=== PATIENT | male | born 1990 | race Caucasian/White ===

== ENCOUNTER → 2020-12-23 | Outpatient (CLI) | payer OTHER ==
[2020-12-23 19:10] LABS: HEPATITIS B SURFACE ANTIBODY NEGATIVE (POSITIVE); HEPATITIS B SURFACE ANTIGEN NEGATIVE (NEGATIVE)
== END ==
LOC: M PLALAB 12:56
PROVIDERS: ATTEND Internal Medicine Infectious Disease
DX: B18.2 Chronic viral hepatitis C (principal)

== ENCOUNTER → 2021-10-23 | Outpatient (CLI) | payer OTHER | LOC: M OUTALCOH 08:08 | PROVIDERS: ATTEND Psychiatry & Neurology Psychiatry | DX: Z13.39 Encounter for screening examination for other mental health and behavioral disorders (principal) ==

== ENCOUNTER 2021-12-01 09:00 | Outpatient (RCR) | payer OTHER | END 2021-12-03 | LOC: M OUTALCOH 09:00 | PROVIDERS: ATTEND Psychiatry & Neurology Psychiatry | DX: F12.20 Cannabis dependence, uncomplicated (principal); F17.200 Nicotine dependence, unspecified, uncomplicated | CPT/HCPCS: 90832; H0050 ==

== ENCOUNTER → 2021-12-18 | Outpatient (CLI) | payer OTHER | LOC: M RAD 16:12 | PROVIDERS: ATTEND Family Medicine Addiction Medicine | DX: R11.2 Nausea with vomiting, unspecified (principal); G93.9 Disorder of brain, unspecified ==

== ENCOUNTER → 2021-12-23 | Outpatient (CLI) | payer OTHER ==
[~2021-12-23] MED LIST: PROHANCE 279.3MG/ML 15ML VIAL As Ordered ONE
== END ==
LOC: M RAD 16:33
PROVIDERS: ATTEND Family Medicine Addiction Medicine
DX: G23.8 Other specified degenerative diseases of basal ganglia (principal)
CPT/HCPCS: 70553; A9576

== ENCOUNTER 2021-12-29 09:00 | Outpatient (RCR) | payer OTHER | END 2022-01-03 | LOC: M OUTALCOH 09:00 | PROVIDERS: ATTEND Psychiatry & Neurology Psychiatry | DX: F12.20 Cannabis dependence, uncomplicated (principal); F17.200 Nicotine dependence, unspecified, uncomplicated ==

== ENCOUNTER 2022-02-02 09:00 | Outpatient (RCR) | payer MEDICAID | END 2022-02-03 | LOC: M OUTALCOH 09:00 | PROVIDERS: ATTEND Psychiatry & Neurology Psychiatry | DX: F12.20 Cannabis dependence, uncomplicated (principal); F17.200 Nicotine dependence, unspecified, uncomplicated ==

== ENCOUNTER 2022-02-23 09:00 | Outpatient (RCR) | payer MEDICAID | END 2022-03-05 | LOC: M OUTALCOH 09:00 | PROVIDERS: ATTEND Psychiatry & Neurology Psychiatry | DX: F12.20 Cannabis dependence, uncomplicated (principal); F17.200 Nicotine dependence, unspecified, uncomplicated ==

== ENCOUNTER 2022-04-15 16:00 | Outpatient (RCR) | payer MEDICAID | END 2022-05-05 | LOC: M OUTALCOH 16:00 | PROVIDERS: ATTEND Psychiatry & Neurology Psychiatry | DX: F12.20 Cannabis dependence, uncomplicated (principal); F17.200 Nicotine dependence, unspecified, uncomplicated ==

== ENCOUNTER 2022-05-13 09:00 | Outpatient (RCR) | payer MEDICAID | END 2022-06-05 | LOC: M OUTALCOH 09:00 | PROVIDERS: ATTEND Psychiatry & Neurology Psychiatry | DX: F12.20 Cannabis dependence, uncomplicated (principal); F17.200 Nicotine dependence, unspecified, uncomplicated ==

== ENCOUNTER → 2022-11-08 | Outpatient (CLI) | payer OTHER ==
[2022-11-08 14:33] LABS: BASO # 0.1 10^3/uL (0.0-0.2); BASO % 0.6 % (0.0-1.0); EOS # 0.1 10^3/uL (0.0-0.5); HEMATOCRIT 42.8 % (42.0-52.0); HEMOGLOBIN 13.9 g/dl (13.5-17.5); LYMPH # 1.4 10^3/uL (1.5-5.0); LYMPH % 14.3 % (24.0-44.0); MEAN CORPUSCULAR HGB CONC 32.5 g/dl (32.0-36.5); MEAN CORPUSCULAR VOLUME 92.4 fl (80.0-96.0); MONO # 0.4 10^3/uL (0.0-0.8); MONO % 3.9 % (2.0-8.0); NEUTROPHILS % 79.9 % (36.0-66.0); PLATELET COUNT, AUTOMATED 295 10^3/uL (150-450); RED BLOOD COUNT 4.63 10^6/uL (4.30-6.10)
[2022-11-08 15:25] LABS: ALBUMIN 4.4 G/DL (3.2-5.2); ALKALINE PHOSPHATASE 55 U/L (46-116); ALT/SGPT 11 U/L (7.0-40); AST/SGOT < 8 U/L (<34); BILIRUBIN,TOTAL 0.3 MG/DL (0.3-1.2); BLOOD UREA NITROGEN 11 MG/DL (9-23); CALCIUM LEVEL 9.3 MG/DL (8.5-10.1); CARBON DIOXIDE LEVEL 29 MMOL/L (20-31); CHLORIDE LEVEL 106 MMOL/L (98-107); CHOLESTEROL LEVEL 193 MG/DL (<200); CHOLESTEROL RISK RATIO 3.11 (<5); CREATININE FOR GFR 0.85 MG/DL (0.70-1.30); GLOMERULAR FILTRATION RATE > 60.0 (>60); GLUCOSE, FASTING 71 MG/DL (60-100); HDL CHOLESTEROL 61.9 MG/DL (>40); LDL CHOLESTEROL 119.1 MG/DL (<100); NON-HDL-C 131.1 MG/DL; POTASSIUM SERUM 5.3 MMOL/L (3.5-5.1); SODIUM LEVEL 142 MMOL/L (136-145); THYROID STIMULATING HORMONE 2.085 uIU/ML (0.55-4.78); TOTAL PROTEIN 6.9 G/DL (5.7-8.2); TRIGLYCERIDES LEVEL 60 MG/DL (<150)
[2022-11-08 15:26] LABS: HEPATITIS B SURFACE ANTIBODY NEGATIVE (POSITIVE)
[2022-11-08 15:27] LABS: FREE T4 0.97 NG/DL (0.89-1.76)
[2022-11-08 15:32] LABS: HEMOGLOBIN A1c 5.2 % (4.0-6.0)
[2022-11-08 15:37] LABS: HEPATITIS B SURFACE ANTIGEN NEGATIVE (NEGATIVE)
[2022-11-08 15:59] LABS: HEPATITIS B CORE ANTIBODY IGM NEGATIVE (NEGATIVE)
[2022-11-08 16:17] LABS: HEPATITIS C VIRUS ABY INDEX > 11.0 INDEX (<0.8)
== END ==
LOC: M PLALAB 10:17
PROVIDERS: ATTEND Nurse Practitioner Family
DX: Z86.19 Personal history of other infectious and parasitic diseases (principal); Z13.1 Encounter for screening for diabetes mellitus; F20.9 Schizophrenia, unspecified

== ENCOUNTER → 2022-11-15 | Outpatient (REF) | payer MEDICAID, OTHER ==
[2022-11-15 14:13] LABS: APPEARANCE, URINE MANUAL CLEAR (CLEAR); BILIRUBIN, URINE MANUAL NEGATIVE (NEGATIVE); BLOOD URINE MANUAL POSITIVE (NEGATIVE); COLOR, URINE MANUAL YELLOW (YELLOW); GLUCOSE, URINE (UA) MANUAL NEGATIVE (NEGATIVE); KETONE, URINE MANUAL NEGATIVE (NEGATIVE); LEUKOCYTE ESTERASE, URINE MAN NEGATIVE (NEGATIVE); NITRITE, URINE MANUAL NEGATIVE (NEGATIVE); PROTEIN, URINE MANUAL NEGATIVE (NEGATIVE); SPECIFIC GRAVITY,URINE MANUAL 1.025 (1.002-1.035); UROBILINOGEN, URINE MANUAL NORMAL (NORMAL)
[2022-11-15 14:39] LABS: BACTERIA, URINE SMALL AMOUNT; HYALINE CAST, URINE NONE SEEN /lpf (0-1); SPERM, URINE SMALL AMOUNT; SQUAMOUS EPITHELIAL CELL URINE SMALL AMOUNT /hpf (SMALL AMT)
== END ==
LOC: M SFHCPLAZ 13:08
PROVIDERS: ATTEND Nurse Practitioner Family
DX: R31.9 Hematuria, unspecified (principal)

== ENCOUNTER 2023-03-21 14:25 | Day surgery (SDC) | payer OTHER ==
[~2023-03-21] VITALS: Ht 182.9 cm; Wt 78.9 kg
[~2023-03-21 14:25] MED LIST changes: +ADDE20CA3 PO; +AMPICILLIN SOD/SULBACTAM SOD 3 GM in D5W MINI-BAG PLUS 100 ML IV ONE; +BUPR8SUB SL; +INVE234I IM; +PRAZ2CAP PO; -PROHANCE 279.3MG/ML 15ML VIAL As Ordered ONE; +TRAZ-186 PO
[2023-03-21] MEDS ORDERED: MIDAZOLAM INJ 2MG/2ML VIAL As Ordered ONE (14:34)
[2023-03-21] MEDS ORDERED: fentaNYL 100 MCG/2 ML INJECTION As Ordered ONE (14:35)
[2023-03-21] MEDS ORDERED: ACETAMINOPHEN 1000MG 100ML IV BAG As Ordered ONE (14:35)
[2023-03-21] MEDS ORDERED: ROCURONIUM BROMIDE 50MG/5ML VIAL As Ordered ONE (14:36)
[2023-03-21] MEDS ORDERED: propofoL 200 MG/20 ML VIAL As Ordered ONE (14:36)
[2023-03-21] MEDS ORDERED: LIDOCAINE 2% 100MG/5ML SDV (FOR ANES.) As Ordered ONE (14:36)
[2023-03-21] MEDS ORDERED: ONDANSETRON 4MG 2ML VIAL As Ordered ONE (14:36)
[2023-03-21] MEDS ORDERED: SUGAMMADEX SODIUM 500 MG/5 ML VIAL (BRIDION) As Ordered ONE (14:36)
[2023-03-21] MEDS ORDERED: LIDOCAINE 2% W/ EPINEPHRINE 1.7 ML DENTAL INJ As Ordered ONE ×2 (15:41→15:42)
[2023-03-21] MEDS ORDERED: CHLORHEXIDINE GLUCONATE 0.12 % 15ML UDC (PERIDEX ORAL RINSE) As Ordered ONE ×2 (15:42→15:43)
[2023-03-21] MEDS ORDERED: PHENYLEPHRINE 0.5% NASAL SPRAY 15 ML As Ordered ONE (15:50)
[2023-03-21] MEDS ORDERED: LIDOCAINE 2% JELLY 6ML SYRINGE As Ordered ONE (15:51)
[2023-03-21] MEDS ORDERED: ONDANSETRON 4MG 2ML VIAL IV PRN (17:05)
[2023-03-21] MEDS ORDERED: oxyCODONE 5MG TAB PO PRN (17:05)
[2023-03-21] MEDS ORDERED: fentaNYL 100 MCG/2 ML INJECTION IV PRN (17:05)
[2023-03-21 18:14] VITALS: BP 128/86; TEMP 97.2; O2SAT 98
== END 2023-03-21 18:26 | disposition home or self-care (01) ==
LOC: M SDC 14:25
PROVIDERS: ATTEND Dentist
DX: K02.9 Dental caries, unspecified (principal); K74.60 Unspecified cirrhosis of liver; B18.2 Chronic viral hepatitis C; F90.9 Attention-deficit hyperactivity disorder, unspecified type; F60.3 Borderline personality disorder; F41.9 Anxiety disorder, unspecified; F32.A Depression, unspecified; F31.9 Bipolar disorder, unspecified; F20.9 Schizophrenia, unspecified; F43.10 Post-traumatic stress disorder, unspecified; Z79.899 Other long term (current) drug therapy
CPT/HCPCS: 88300; C9290; D7140; D7210; D7310; D9223; J0131; J0295; J1100; J2250; J2405; J3010

== ENCOUNTER 2024-08-09 12:07 | Inpatient (IN) | payer MEDICAID, OTHER ==
[~2024-08-09] VITALS: Ht 180.3 cm; Wt 82.9 kg
[~2024-08-09 12:07] MED LIST changes: -AMPICILLIN SOD/SULBACTAM SOD 3 GM in D5W MINI-BAG PLUS 100 ML IV ONE
[2024-08-09 13:13] LABS: HEMOGLOBIN 14.3 g/dl (13.5-17.5); MEAN CORPUSCULAR HEMOGLOBIN 29.9 pg (27.0-33.0); MEAN CORPUSCULAR HGB CONC 33.3 g/dl (32.0-36.5); PLATELET COUNT, AUTOMATED 334 10^3/uL (150-450); RED BLOOD COUNT 4.78 10^6/uL (4.30-6.10); WHITE BLOOD COUNT 8.5 10^3/uL (4.0-10.0)
[2024-08-09 13:25] LABS: BARBITURATES URINE NEGATIVE (NEGATIVE); BENZODIAZEPINES URINE NEGATIVE (NEGATIVE); COCAINE METABOLITE URINE NEGATIVE (NEGATIVE); ETHYL ALCOHOL (ETHANOL) < 0.003 % (0.000-0.010); METHADONE URINE NEGATIVE (NEGATIVE); OPIATES URINE NEGATIVE (NEGATIVE); PHENCYCLIDINE URINE NEGATIVE (NEGATIVE)
[2024-08-09 13:27] LABS: SALICYLATE LEVEL < 3.0 MG/DL (<30)
[2024-08-09 13:28] LABS: ALBUMIN 4.1 G/DL (3.2-5.2); ALKALINE PHOSPHATASE 78 U/L (40-129); ALT/SGPT 22 U/L (7.0-40); AMPHETAMINES LEVEL URINE POSITIVE (NEGATIVE); AST/SGOT 14 U/L (<34); BILIRUBIN,DIRECT 0.1 MG/DL (<0.4); BILIRUBIN,TOTAL 0.4 MG/DL (0.3-1.2); BLOOD UREA NITROGEN 14 MG/DL (9-23); CALCIUM LEVEL 9.7 MG/DL (8.5-10.1); CANNABINOIDS URINE POSITIVE (NEGATIVE); CARBON DIOXIDE LEVEL 27 MMOL/L (20-31); CHLORIDE LEVEL 106 MMOL/L (98-107); CREATININE FOR GFR 0.98 MG/DL (0.70-1.30); GLOMERULAR FILTRATION RATE > 60.0 (>60); GLUCOSE, FASTING 73 MG/DL (60-100); POTASSIUM SERUM 4.2 MMOL/L (3.5-5.1); SODIUM LEVEL 142 MMOL/L (136-145); TOTAL PROTEIN 7.1 G/DL (5.7-8.2)
[2024-08-09 13:31] LABS: THYROID STIMULATING HORMONE 2.575 uIU/ML (0.55-4.78)
[2024-08-09] MEDS ORDERED: BUPR150T12 PO (15:19)
[2024-08-09] MEDS ORDERED: LUMA21CA PO (15:19)
[2024-08-09] MEDS ORDERED: METF500T13 PO (15:19)
[2024-08-09] MEDS ORDERED: LEXA5TAB13 PO (15:19)
[2024-08-09] MEDS ORDERED: ADDE30TA PO (15:23)
[2024-08-09] MEDS ORDERED: HOME MED LIST COMPLETE! XX SCH (16:10)
[2024-08-09] MEDS: metFORMIN (GLUCOPHAGE) 500MG TAB PO SCH (18:17)
[2024-08-09] MEDS: PRAZOSIN 1 MG CAP PO SCH (21:31)
[2024-08-10] MEDS: ADDERALL 5 MG TAB PO SCH (07:37)
[2024-08-10] MEDS: ESCITALOPRAM OXALATE 5MG TABLET (LEXAPRO) PO SCH (09:33)
[2024-08-10] MEDS: buPROPion **XL** TABLET 150MG (WELLBUTRIN XL) PO SCH (09:34)
[2024-08-10] MEDS ORDERED: MOM 30ML SUSPENSION UDC PO PRN (18:15)
[2024-08-10] MEDS ORDERED: ACETAMINOPHEN 325 MG TAB PO PRN (18:15)
[2024-08-10] MEDS ORDERED: IBUPROFEN 400MG TAB PO PRN (18:15)
[2024-08-10] MEDS ORDERED: MAALOX 30 ML SUSP *UDC PO PRN (18:15)
[2024-08-10] MEDS ORDERED: diphenhydrAMINE 25MG CAP PO PRN (18:15)
[2024-08-10 22:37] VITALS: BP 123/82; TEMP 97.9; O2SAT 98
[2024-08-11 06:39] VITALS: BP 111/63; TEMP 98.3; O2SAT 98
[2024-08-11] MEDS: NICOTINE 14 MG/24 HR TRANSDERMAL TD SCH (12:05)
[2024-08-11 15:41] VITALS: BP 140/89; TEMP 97.2; O2SAT 99
[2024-08-11] MEDS: traZODone 50 MG TAB PO PRN (20:45)
[2024-08-12 06:28] VITALS: BP 126/60; TEMP 97; O2SAT 97
[2024-08-12 15:45] VITALS: BP 122/84; TEMP 97.6; O2SAT 100
[2024-08-12 20:30] VITALS: BP 155/99
[2024-08-13 06:40] VITALS: BP 110/59; TEMP 97.4; O2SAT 97
[2024-08-13] MEDS ORDERED: ABIL1TAB11 PO (10:37)
[2024-08-13] MEDS ORDERED: ABIL400I IM (10:37)
[2024-08-13] MEDS: ARIPiprazole MONOHYDRATE 400 MG INJ (ABILIFY)(FREE PSY INPT ONLY) IM ONE (13:17)
== END 2024-08-13 13:36 | disposition home or self-care (01) | DRG 750 ==
LOC: M ED 12:07 → M ED INP 08-10 18:14 → M PSY 08-10 22:37
PROVIDERS: ADMIT Student in an Organized Health Care Education/Training Program; ATTEND Student in an Organized Health Care Education/Training Program
DX: F25.0 Schizoaffective disorder, bipolar type (principal); F15.20 Other stimulant dependence, uncomplicated; R45.851 Suicidal ideations; F41.9 Anxiety disorder, unspecified; F90.9 Attention-deficit hyperactivity disorder, unspecified type; F43.10 Post-traumatic stress disorder, unspecified; F12.20 Cannabis dependence, uncomplicated; W22.09XA Striking against other stationary object, initial encounter; Y92.9 Unspecified place or not applicable; F17.210 Nicotine dependence, cigarettes, uncomplicated; E66.9 Obesity, unspecified; Z79.84 Long term (current) use of oral hypoglycemic drugs; Z79.899 Other long term (current) drug therapy

== ENCOUNTER 2025-03-28 14:09 | Inpatient (IN) | payer OTHER ==
[~2025-03-28] VITALS: Ht 180.3 cm; Wt 78.1 kg
[~2025-03-28 14:09] MED LIST changes: +ABIL1TAB11 PO; +ADDE30TA PO; +ARIP400S IM; +BUPR150T12 PO; +LEXA5TAB13 PO; +LUMA21CA PO; +METF500T13 PO
[2025-03-28] MEDS ORDERED: HOME MED LIST COMPLETE! XX SCH (15:45)
[2025-03-28 15:49] LABS: PLATELET COUNT, AUTOMATED 300 10^3/uL (150-450)
[2025-03-28 16:18] LABS: ETHYL ALCOHOL (ETHANOL) < 0.003 % (0.000-0.010)
[2025-03-28 16:20] LABS: ALT/SGPT 16 U/L (7.0-40); AST/SGOT 13 U/L (<34); CALCIUM LEVEL 8.9 MG/DL (8.5-10.1); CARBON DIOXIDE LEVEL 27 MMOL/L (20-31); CHLORIDE LEVEL 106 MMOL/L (98-107); CREATININE FOR GFR 0.80 MG/DL (0.70-1.30); GLOMERULAR FILTRATION RATE > 90.0 (>60); POTASSIUM SERUM 4.2 MMOL/L (3.5-5.1); SALICYLATE LEVEL < 3.0 MG/DL (<30); SODIUM LEVEL 142 MMOL/L (136-145)
[2025-03-28 20:26] LABS: AMPHETAMINES LEVEL URINE POSITIVE (NEGATIVE); BARBITURATES URINE NEGATIVE (NEGATIVE); BENZODIAZEPINES URINE NEGATIVE (NEGATIVE); CANNABINOIDS URINE POSITIVE (NEGATIVE); COCAINE METABOLITE URINE NEGATIVE (NEGATIVE); METHADONE URINE NEGATIVE (NEGATIVE); OPIATES URINE NEGATIVE (NEGATIVE); PHENCYCLIDINE URINE NEGATIVE (NEGATIVE)
[2025-03-28] MEDS ORDERED: ACETAMINOPHEN 325 MG TAB PO PRN (22:00)
[2025-03-28] MEDS ORDERED: MOM 30 ML SUSPENSION UDC PO PRN (22:00)
[2025-03-28] MEDS ORDERED: MAALOX 30 ML SUSP *UDC PO PRN (22:00)
[2025-03-29 01:55] VITALS: BP 120/80; TEMP 96.8; O2SAT 98
[2025-03-29 06:28] VITALS: BP 120/80; TEMP 96.8; O2SAT 98
[2025-03-29] MEDS: LORazepam 1 MG TAB PO PRN (10:55)
[2025-03-29] MEDS ORDERED: LOPERAMIDE 2 MG CAPLET PO PRN (12:10)
[2025-03-29] MEDS ORDERED: ONDANSETRON 4MG ORAL DISINTEGRATING TAB PO PRN (12:10)
[2025-03-29] MEDS: BUPRENORPHINE/NALOXONE 2-0.5MG SUBLINGUAL TABLET(SUBOXONE) SL SCH (13:00)
[2025-03-29 14:30] VITALS: BP 123/80; O2SAT 96
[2025-03-29] MEDS: traZODone 50 MG TAB PO PRN (20:59)
[2025-03-30 06:25] VITALS: BP 114/58; TEMP 96.9; O2SAT 100
[2025-03-30 09:26] VITALS: BP 119/79
[2025-03-30] MEDS: buPROPion **XL** 150 MG TABLET PO SCH (09:28)
[2025-03-31 06:21] VITALS: BP 102/58; TEMP 97.8; O2SAT 99
[2025-03-31 08:20] VITALS: BP 94/51; TEMP 97.8; O2SAT 97
[2025-03-31 08:35] VITALS: BP 98/57
[2025-03-31 09:35] VITALS: BP 96/54; O2SAT 100
[2025-03-31] MEDS ORDERED: LORazepam 1 MG TAB PO PRN (11:25)
[2025-03-31 12:53] VITALS: BP 97/54; O2SAT 100
[2025-03-31 16:31] VITALS: BP 104/68; O2SAT 100
[2025-04-01 06:41] VITALS: BP 113/70; TEMP 96.1; O2SAT 97
[2025-04-01 08:30] VITALS: BP 106/68; O2SAT 100
[2025-04-01] MEDS: BUPRENORPHINE/NALOXONE 2-0.5MG SUBLINGUAL TABLET(SUBOXONE) SL SCH (09:42)
[2025-04-01 12:30] VITALS: BP 113/69; O2SAT 100
[2025-04-01 15:21] VITALS: BP 129/87; TEMP 97.6; O2SAT 99
[2025-04-01] MEDS: HALOPERIDOL 5 MG TAB PO PRN (20:57)
[2025-04-02 06:35] VITALS: BP 88/52; TEMP 97.5; O2SAT 93
[2025-04-02 07:56] VITALS: BP 103/55; TEMP 98.3; O2SAT 99
[2025-04-02 15:02] VITALS: BP 123/66; TEMP 97.6; O2SAT 96
[2025-04-02] MEDS: PRAZOSIN 1 MG CAP PO SCH (21:06)
[2025-04-03 06:00] VITALS: BP 100/55; TEMP 97.3; O2SAT 100
[2025-04-03 08:27] VITALS: BP 108/60; TEMP 97.7; O2SAT 100
[2025-04-03 15:16] VITALS: BP 114/59; TEMP 97.6; O2SAT 95
[2025-04-03] MEDS ORDERED: TRAZ-252 PO (16:49)
[2025-04-03] MEDS ORDERED: HYDR-3363 PO (16:49)
[2025-04-03] MEDS ORDERED: BUPR150T12 PO (16:49)
[2025-04-03] MEDS ORDERED: ABIL10TA9 PO (16:49)
[2025-04-03] MEDS ORDERED: PRAZ1CAP PO (16:49)
[2025-04-03 20:13] VITALS: BP 158/98
[2025-04-03] MEDS: IBUPROFEN 400 MG TAB PO PRN (20:13)
[2025-04-04 06:29] VITALS: BP 103/51; TEMP 97.1; O2SAT 97
== END 2025-04-04 12:20 | DRG 750 ==
LOC: M ED 14:09 → M ED INP 22:00 → M PSY 03-29 01:52
PROVIDERS: ADMIT Psychiatry & Neurology Neurology; ATTEND Psychiatry & Neurology Neurology
DX: F25.0 Schizoaffective disorder, bipolar type (principal); F15.20 Other stimulant dependence, uncomplicated; R45.851 Suicidal ideations; F41.9 Anxiety disorder, unspecified; F12.20 Cannabis dependence, uncomplicated; G47.00 Insomnia, unspecified; Z91.51 Personal history of suicidal behavior; Z81.8 Family history of other mental and behavioral disorders; Z71.51 Drug abuse counseling and surveillance of drug abuser